=== PATIENT | male | born 1990 | race African-American/Black ===

== ENCOUNTER 2019-07-15 20:12 | Emergency (ER) | payer OTHER ==
[~2019-07-15] VITALS: Ht 170.2 cm; Wt 83.5 kg
--- NOTE | 2019-07-15 22:00 | PHYS DOC ---
Past History Past Medical History: No Pertinent History Past Surgical History: No Surgical History Alcohol Use: None Drug Use: None Adult General Chief Complaint Chief Complaint: ABDOMINAL PAIN HPI HPI Patient is a 28 year old male who presents with complaint of abdominal pain. The patient states that he started having pain over the past 2 days. Noted that the pain worsens whenever he was lifting anything heavy at work. Noticed today that he had swelling near his belly button and thus came to the emergency department to have this evaluated. States that the swollen area on his abdomen is tender to touch. Denies any associated fever, vomiting, or change in stool habits. Denies any significant past medical history. Has not taking medications for his symptoms. Review of Systems Review of Systems Constitutional: Denies fever or chills [] Eyes: Denies change in visual acuity, redness, or eye pain [] HENT: Denies nasal congestion or sore throat [] Respiratory: Denies cough or shortness of breath [] Cardiovascular: No additional information not addressed in HPI [] GI: Abdominal pain and swelling near bellybutton, denies nausea, vomiting, bloody stools or diarrhea [] : Denies dysuria or hematuria [] Musculoskeletal: Denies back pain or joint pain [] Integument: Denies rash or skin lesions [] Neurologic: Denies headache, focal weakness or sensory changes [] All other systems were reviewed and found to be within normal limits, except as documented in this note. Allergies Allergies Allergies Coded Allergies Type Severity Reaction Last Updated Verified No Known Drug Allergies 07/15/19 No Physical Exam Physical Exam Constitutional: Well developed, well nourished, no acute distress, non-toxic appearance. [] HENT: Normocephalic, atraumatic, bilateral external ears normal, oropharynx moist, no oral exudates, nose normal. [] Eyes: PERRLA, EOMI, conjunctiva normal, no discharge. [] Neck: Normal range of motion, no tenderness, supple, no stridor. [] Cardiovascular:Heart rate regular rhythm, no murmur [] Lungs & Thorax: Bilateral breath sounds clear to auscultation [] Abdomen: Bowel sounds normal, soft, 1 cm swollen tender mass near dorsal aspect of the umbilicus that is reducible with palpation, no pulsatile masses. [] Skin: Warm, dry, no erythema, no rash. [] Back: No tenderness, no CVA tenderness. [] Extremities: No tenderness, no cyanosis, no clubbing, ROM intact, no edema. [] Neurologic: Alert and oriented X 3, normal motor function, normal sensory function, no focal deficits noted. [] Current Patient Data Vital Signs Vital Signs Date Time Temp Pulse Resp B/P (MAP) Pulse Ox O2 Delivery O2 Flow Rate FiO2 07/15/19 20:22 98.2 82 18 97 Room Air 07/15/19 20:21 128/54 (78) Lab Results Not performed EKG EKG Not performed[] Radiology/Procedures Radiology/Procedures Not performed[] Course & Med Decision Making Course & Med Decision Making Pertinent Labs and Imaging studies reviewed. (See chart for details) Patient has a palpable periumbilical hernia on examination is slightly tender but freely reducible. Given the small size of this lesion and lack of any severe symptoms, I have very low suspicion for bowel entrapment. Advised use of cold compresses to the affected area and advised patient to avoid any heavy lifting or straining. Referred to Dr. Abebe of general surgery for follow-up in 1 week for reevaluation. Advised return to emergency department for any w orsening symptoms. Patient was understanding and in agreement with treatment plan. Dragon Disclaimer Dragon Disclaimer This electronic medical record was generated, in whole or in part, using a voice recognition dictation system. Departure Departure: Impression: Primary Impression: Umbilical hernia Disposition: 01 HOME, SELF-CARE Condition: STABLE Referrals: PCP,[facility] (PCP) TIERRA ABEBE MD Patient Instructions: Hernia Additional Instructions: You have a small hernia found on today's exam that does not appear to be serious at this time. It is recommended however that you limit any heavy lifting as this could worsen your current condition and cause it to become an immediate potentially surgical problem. Follow-up with Dr. Abebe in the next 7 days for reevaluation and to discuss any further treatment options. Return to emergency department for any worsening symptoms. Problem Qualifiers Primary Impression: Umbilical hernia Obstruction and gangrene presence: without obstruction or gangrene Qualified Codes: K42.9 - Umbilical hernia without obstruction or gangrene JADIEL ARRIAGA MD Jul 15, 2019 22:00
[2019-07-15 22:16] VITALS: BP 126/61
== END 2019-07-15 22:14 | disposition home or self-care (01) ==
LOC: ER 20:12
DX: K42.9 Umbilical hernia without obstruction or gangrene (principal)
CPT/HCPCS: 99281

== ENCOUNTER 2019-08-19 09:32 | Emergency (ER) | payer OTHER ==
[~2019-08-19] VITALS: Ht 170.2 cm; Wt 84.3 kg
--- NOTE | 2019-08-19 10:07 | ED.ADGEN ---
Past History Past Medical History: No Pertinent History Past Surgical History: No Surgical History Alcohol Use: None Drug Use: None Adult General Chief Complaint Chief Complaint Sneezing HPI HPI Patient is a 29-year-old male presents with nasal congestion rhinorrhea, sneezing and chest wall pain following sneeze. Symptoms began 2 days ago and gradually progress. Patient was at local pharmacy and sneezed and felt as though it knocked him over. He also reports neck and low back pain which has since improved. No asthma or history of chronic respiratory disease other acute symptoms or complaints. 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 All other review symptom as per history of present illness. All other systems were reviewed and found to be within normal limits, except as documented in this note. Allergies Allergies Allergies Coded Allergies Type Severity Reaction Last Updated Verified No Known Drug Allergies 08/19/19 No Physical Exam Physical Exam Constitutional: Well developed, well nourished, no acute distress, non-toxic appearance. [] HENT: Normocephalic, atraumatic, bilateral external ears normal, oropharynx moist, no oral exudates, nose, congestion, clear rhinorrhea. [] Eyes: PERRLA, EOMI, conjunctiva normal, no discharge. [] Neck: Normal range of motion, no tenderness, supple, no stridor. [] Cardiovascular:Heart rate regular rhythm, no murmur [] Lungs & Thorax: Bilateral breath sounds clear to auscultation [] Abdomen: Bowel sounds normal, soft, no tenderness, no masses, no pulsatile masses. [] Skin: Warm, dry, no erythema, no rash. [] Back: No tenderness, no CVA tenderness. [] Extremities: No tenderness, no cyanosis, no clubbing, ROM intact, no edema. [] Neurologic: Alert and oriented X 3, normal motor function, normal sensory f unction, no focal deficits noted. [] Psychologic: Affect normal, judgement normal, mood normal. [] Current Patient Data Vital Signs Vital Signs Date Time Temp Pulse Resp B/P (MAP) Pulse Ox O2 Delivery O2 Flow Rate FiO2 08/19/19 09:45 98.1 67 18 99 Room Air EKG EKG [] Radiology/Procedures Radiology/Procedures [] Course & Med Decision Making Course & Med Decision Making Pertinent Labs and Imaging studies reviewed. (See chart for details) [Recommend supportive care.] Final Impression Final Impression [#1 viral upper respiratory tract infection] Isaura Disclaimer Isaura Disclaimer This electronic medical record was generated, in whole or in part, using a voice recognition dictation system. CECILIA NEWBERRY DO Aug 19, 2019 10:07
[2019-08-19] MEDS ORDERED: FEXO1TAB31 PO (10:09)
[2019-08-19 10:21] VITALS: BP 125/77
== END 2019-08-19 10:22 | disposition home or self-care (01) ==
LOC: ER 09:32
DX: J06.9 Acute upper respiratory infection, unspecified (principal); B97.89 Other viral agents as the cause of diseases classified elsewhere; M54.2 Cervicalgia; M54.5 Low back pain
CPT/HCPCS: 99282